=== PATIENT | male | born 1985 | race Caucasian/White ===

== ENCOUNTER 2021-08-20 07:15 | Emergency (ER) | payer MEDICAID, MEDICARE, OTHER ==
[~2021-08-20] VITALS: Ht 180.3 cm; Wt 100.0 kg
[~2021-08-20 07:15] MED LIST: CEPH-569; NO MEDICATIONS REPORTED
[2021-08-20] MEDS ORDERED: TETANUS, DIPHTHERIA, PERTUSSIS VAC/PF 0.5ML (>10YR OLD) IM ONE (08:15)
[2021-08-20] MEDS ORDERED: HYDROCODONE/ACETAMINOPHEN 5/325MG TABLET PO ONE (08:15)
[2021-08-20] MEDS ORDERED: LIDOCAINE HCL 1% 20ML VIAL (Pyxis) INJ INFIL ONE (08:30)
[2021-08-20 09:01] LABS: HEMATOCRIT. 43.6 % (42.0-52.0); HEMOGLOBIN. 15.4 g/dL (14.0-18.0); MEAN CORPUSCULAR HEMOGLOBIN 30.8 pg (28.0-32.0); MEAN CORPUSCULAR VOLUME 87.4 fL (80.0-94.0); MEAN PLATELET VOLUME 6.5 fl (7.4-10.4); PLATELET 330 x1000/uL (130-400); RED BLOOD CELL COUNT 4.98 mill/uL (4.7-6.1); RED CELL DISTRIBUTION WIDTH 13.4 % (11.6-14.6)
[2021-08-20 09:09] LABS: CHLORIDE 105 mEq/L (98-107)
[2021-08-20 09:13] LABS: ETHANOL BLOOD < 10 mg/dL
[2021-08-20 09:50] LABS: PLATELET ESTIMATE NORMAL
[2021-08-20] MEDS ORDERED: AMOXICILLIN/POTASSIUM CLAVULANATE 875/125MG TAB PO ONE (10:45)
[2021-08-20] MEDS: FLUOXETINE HCL 20MG CAPSULE PO SCH (11:00)
[2021-08-20] MEDS: QUETIAPINE FUMARATE 50MG TABLET PO SCH ×2 (11:10→21:00)
[2021-08-20] MEDS: LORAZEPAM 1MG TABLET PO PRN ×2 (12:49→18:01)
[2021-08-20] MEDS ORDERED: CEFAZOLIN 1000MG PREMIX 50 ML IV SCH (13:15)
[2021-08-20] MEDS: OLANZAPINE 5MG TABLET ODT PO SCH (17:00)
[2021-08-21] MEDS: OLANZAPINE 5MG TABLET ODT PO SCH (09:24)
[2021-08-21] MEDS: FLUOXETINE HCL 20MG CAPSULE PO SCH (09:24)
[2021-08-21] MEDS: QUETIAPINE FUMARATE 50MG TABLET PO SCH (09:24)
[2021-08-21] MEDS ORDERED: OLAN5TAB3 PO (10:45)
[2021-08-21] MEDS ORDERED: QUET200T PO (10:45)
[2021-08-21] MEDS ORDERED: CEPH500T MT (10:45)
[2021-08-21] MEDS ORDERED: FLUO20CA33 MT (10:45)
[2021-08-21 12:00] VITALS: BP 110/59
[2021-08-21] MEDS ORDERED: ACETAMINOPHEN 325MG TABLET PO ONE (12:00)
== END 2021-08-21 13:30 | disposition home or self-care (01) ==
LOC: ER 07:15
DX: S61.411A Laceration without foreign body of right hand, initial encounter (principal); F17.200 Nicotine dependence, unspecified, uncomplicated; F12.10 Cannabis abuse, uncomplicated; Z20.822 Contact with and (suspected) exposure to COVID-19; Z86.59 Personal history of other mental and behavioral disorders; W45.8XXA Other foreign body or object entering through skin, initial encounter; Y93.89 Activity, other specified; Y92.89 Other specified places as the place of occurrence of the external cause; Y99.8 Other external cause status
CPT/HCPCS: 12001; 36415; 73130; 80053; 80307; 80320; 80329; 85025; 87426; 90471; 90715; 96365; 99285; J0690; J3490; G0480

== ENCOUNTER 2022-09-14 08:36 | Emergency (ER) | payer MEDICARE, MEDICAID ==
[~2022-09-14] VITALS: Ht 182.9 cm; Wt 91.0 kg
[~2022-09-14 08:36] MED LIST changes: +CEPH500T MT; +FLUO20CA33 MT; +OLAN5TAB3 PO; +QUET200T PO
[2022-09-14] MEDS ORDERED: LORAZEPAM 2MG/ML CPJ IV ONE (08:45)
[2022-09-14] MEDS ORDERED: SODIUM CHLORIDE 0.9% 1,000 ML IV ONE (08:45)
[2022-09-15 09:03] VITALS: BP 110/70
== END 2022-09-15 09:04 | disposition home or self-care (01) ==
LOC: ER 08:36
DX: F15.180 Other stimulant abuse with stimulant-induced anxiety disorder (principal); I44.4 Left anterior fascicular block; R00.0 Tachycardia, unspecified; E11.9 Type 2 diabetes mellitus without complications; F20.9 Schizophrenia, unspecified
CPT/HCPCS: 93005; 96374; 99285; J2060; J7030

== ENCOUNTER 2023-01-19 18:02 | Emergency (ER) | payer MEDICARE, MEDICAID ==
[~2023-01-19] VITALS: Ht 172.7 cm; Wt 90.0 kg
[2023-01-19 20:54] LABS: CLARITY URINE CLEAR (CLEAR); COLOR URINE YELLOW (YELLOW); KETONES URINE NEGATIVE (NEGATIVE); LEUKOCYTE ESTERASE URINE NEGATIVE (NEGATIVE); NITRITE URINE NEGATIVE (NEGATIVE); OCCULT BLOOD URINE NEGATIVE (NEGATIVE); PH URINE 6.5 (4.5-8.0); PROTEIN URINE NEGATIVE (NEGATIVE); SPECIFIC GRAVITY URINE 1.002 (1.005-1.030); UROBILINOGEN URINE 0.2 E.U./dL (0.2-1.0)
[2023-01-19 20:58] LABS: BASOPHILS % 0.4 % (0.0-2.0); EOSINOPHILS % 0.9 % (0.0-5.0); HEMATOCRIT. 39.6 % (42.0-52.0); HEMOGLOBIN. 13.7 g/dL (14.0-18.0); LYMPHOCYTES % 22.9 % (20.0-50.0); MEAN CORPUSCULAR HEMOGLOBIN 30.8 pg (28.0-32.0); MEAN PLATELET VOLUME 6.4 fl (7.4-10.4); MONOCYTES % 9.3 % (2.0-8.0); NEUTROPHILS % 66.5 % (40.0-76.0); PLATELET 296 x1000/uL (130-400); RED BLOOD CELL COUNT 4.45 mill/uL (4.7-6.1); RED CELL DISTRIBUTION WIDTH 13.6 % (11.6-14.6)
[2023-01-19 21:08] LABS: CHLORIDE 105 mEq/L (98-107)
[2023-01-19 21:11] LABS: *AMPHETAMINES SCREEN URINE PRESUMTIVE POSITIVE (NEGATIVE); *BARBITURATES SCREEN URINE NEGATIVE (NEGATIVE); *BENZODIAZEPINES SCREEN URINE NEGATIVE (NEGATIVE); *COCAINE SCREEN URINE NEGATIVE (NEGATIVE); CANNABINOID URINE SCREEN NEGATIVE (NEGATIVE); METHADONE URINE SCREEN NEGATIVE (NEGATIVE); OPIATES URINE SCREEN NEGATIVE (NEGATIVE); PHENCYCLIDINE URINE SCREEN NEGATIVE (NEGATIVE)
[2023-01-19 21:19] LABS: ETHANOL BLOOD < 10 mg/dL (-10)
[2023-01-19] MEDS ORDERED: POTASSIUM CHLORIDE 20MEQ/PACKET PO ONE (23:00)
[2023-01-20] MEDS ORDERED: POTASSIUM CHLORIDE 20MEQ/PACKET PO NR (01:45)
[2023-01-20 12:45] VITALS: BP 115/62
== END 2023-01-20 13:05 | disposition home or self-care (01) ==
LOC: ER 18:02
DX: R44.0 Auditory hallucinations (principal); E11.9 Type 2 diabetes mellitus without complications; F15.10 Other stimulant abuse, uncomplicated; Z20.822 Contact with and (suspected) exposure to COVID-19
CPT/HCPCS: 36415; 80053; 80305; 80307; 80320; 80329; 81003; 85025; 87426; 99285; C9803; G0480

== ENCOUNTER 2024-02-22 09:58 | Emergency (ER) | payer MEDICARE, MEDICAID ==
[~2024-02-22] VITALS: Ht 185.4 cm; Wt 114.0 kg
[2024-02-22 09:59] VITALS: O2SAT 97
[2024-02-22 10:40] VITALS: BP 141/88; PULSE 100; RESP 18; TEMP 98.5
[2024-02-22] MEDS: RISPERIDONE 0.25MG TABLET PO SCH (10:56)
== END 2024-02-22 11:00 | disposition home or self-care (01) ==
LOC: ER 10:44
DX: M21.921 Unspecified acquired deformity of right upper arm (principal); F32.9 Major depressive disorder, single episode, unspecified; E11.9 Type 2 diabetes mellitus without complications; F20.9 Schizophrenia, unspecified; F15.10 Other stimulant abuse, uncomplicated; Z79.899 Other long term (current) drug therapy; Z76.0 Encounter for issue of repeat prescription
CPT/HCPCS: 99283

== ENCOUNTER 2024-02-22 13:23 | Emergency (ER) | payer MEDICARE, MEDICAID ==
[~2024-02-22] VITALS: Ht 182.9 cm; Wt 109.0 kg
[2024-02-22 13:33] VITALS: BP 142/86; PULSE 91; RESP 18; TEMP 97.7; O2SAT 100
== END 2024-02-22 17:11 | disposition home or self-care (01) ==
LOC: ER 13:23
DX: Z00.00 Encounter for general adult medical examination without abnormal findings (principal); E11.9 Type 2 diabetes mellitus without complications; F15.90 Other stimulant use, unspecified, uncomplicated; F20.9 Schizophrenia, unspecified
CPT/HCPCS: 99281

== ENCOUNTER 2024-03-08 10:54 | Emergency (ER) | payer MEDICARE, MEDICAID ==
[~2024-03-08] VITALS: Ht 188 cm; Wt 66.2 kg
[2024-03-08 11:08] VITALS: O2SAT 98
[2024-03-08] MEDS ORDERED: OCUFLX RIGHTEYE (11:39)
[2024-03-08 11:56] VITALS: BP 147/91; PULSE 94; RESP 16; TEMP 97.4
== END 2024-03-08 11:55 | disposition home or self-care (01) ==
LOC: ER 10:54
DX: H10.31 Unspecified acute conjunctivitis, right eye (principal); F15.10 Other stimulant abuse, uncomplicated; E11.9 Type 2 diabetes mellitus without complications; F32.A Depression, unspecified; Z86.59 Personal history of other mental and behavioral disorders; Z79.899 Other long term (current) drug therapy; Z98.890 Other specified postprocedural states
CPT/HCPCS: 99283

== ENCOUNTER 2024-03-11 14:00 | Emergency (ER) | payer MEDICARE, MEDICAID ==
[~2024-03-11] VITALS: Ht 182.9 cm; Wt 96.0 kg
[~2024-03-11 14:00] MED LIST changes: +OCUFLX RIGHTEYE
[2024-03-11 14:08] VITALS: O2SAT 100
[2024-03-11] MEDS: LORAZEPAM 0.5MG TABLET PO ONE (16:07)
[2024-03-11 16:11] VITALS: BP 144/89; PULSE 66; RESP 20; TEMP 98.1
== END 2024-03-11 16:11 | disposition home or self-care (01) ==
LOC: ER 15:06
DX: F15.10 Other stimulant abuse, uncomplicated (principal); F41.9 Anxiety disorder, unspecified; F31.9 Bipolar disorder, unspecified; E11.9 Type 2 diabetes mellitus without complications; E78.00 Pure hypercholesterolemia, unspecified; F20.9 Schizophrenia, unspecified; Z79.899 Other long term (current) drug therapy
CPT/HCPCS: 99283